=== PATIENT | male | born 1950 | race Caucasian/White ===

== ENCOUNTER 2019-03-14 05:31 | Inpatient (IN) ==
--- NOTE | 2019-02-22 16:15 | PAT Medication Instructions ---
Medication Instructions Date of Service February 22, 2019 Home Medications acetaminophen [Tylenol Extra Strength] 500 mg PO Q6H PRN cholecalciferol (vitamin D3) [Vitamin D3] 125 mcg PO QAM hydrochlorothiazide 25 mg PO QAM lisinopril 40 mg PO QPM omeprazole 20 mg PO QAM simvastatin 20 mg PO PM DO NOT take the morning of surgery cholecalciferol (vitamin D3) [Vitamin D3] 125 mcg PO QAM hydrochlorothiazide 25 mg PO QAM Take morning of surgery With a small sip of water, OTHERWISE NOTHING TO EAT OR DRINK AFTER MIDNIGHT: acetaminophen [Tylenol Extra Strength] 500 mg PO Q6H PRN (if needed, may be taken up to four hours before surgery) omeprazole 20 mg PO QAM Take evening before surgery acetaminophen [Tylenol Extra Strength] 500 mg PO Q6H PRN (if needed) lisinopril 40 mg PO QPM simvastatin 20 mg PO PM Other Notes If you have any questions please call us at [phone] or [phone] or [phone] or [phone]
--- NOTE | 2019-02-23 10:58 | Anesthesiology Consultation ---
Date of Service February 23, 2019 Assessment & Plan (1) Encounter for pre-operative examination: Chart Review Chart Review: Acceptable Risk for Surgery (PENDING PRE OP TESTING -- LABS, EKG, CXR) and Patient seen in Pre Admission Testing Teaching & Discussion Instructed NPO after midnight before surgery, except medications with 15 cc of water. Medication instructions provided according to the PAT guidelines. History Surgery Operation Date: 03/14/19 07:45 Proposed Procedures p L3-L5 Decompression and Fusion, L5-S1 Hardware Removal with Spinal Cord Monitoring - Monty Lopez, Height/Weight Height: 5 ft 9.5 in Weight: 74.843 kg Allergies Allergy/AdvReac Type Severity Reaction Status Date / Time No Known Allergies Allergy Unverified 02/17/19 15:30 Medications Home Medications Medication Instructions Recorded Confirmed Last Taken acetaminophen [Tylenol Extra 500 mg PO Q6H PRN 02/17/19 02/17/19 Unknown Strength] cholecalciferol (vitamin D3) 125 mcg PO QAM 02/17/19 02/17/19 Unknown [Vitamin D3] hydrochlorothiazide 25 mg PO QAM 02/17/19 02/17/19 Unknown lisinopril 40 mg PO QPM 02/17/19 02/17/19 Unknown omeprazole 20 mg PO QAM 02/17/19 02/17/19 Unknown simvastatin 20 mg PO PM 02/17/19 02/17/19 Unknown Past Medical History Medical History (Updated 02/23/19 @ 11:02 by Solomon Greene) BPH (benign prostatic hyperplasia) Chronic kidney disease, stage 3 Follows w/ Dr. Carmelo Larios Degenerative disc disease GERD (gastroesophageal reflux disease) Hyperlipidemia Hypertension Osteoarthritis Sleep apnea Just diagnosed, has not received CPAP machine yet. Exercise / Class Metabolic Activity II 4-5 Yardwork/Stairs/Walk up hill (Denies CP or SOB with 1 FOS) Past Surgical History Surgical History History of cataract surgery History of colonoscopy History of esophagogastroduodenoscopy (EGD) History of prostate biopsy History of spinal surgery x 2 History of tonsillectomy and adenoidectomy History of tooth extraction Past Anesthesia History No Hx of Anesthesia Complications and No Family Hx of Anesthesia Complications History of PONV No Hx of PONV and No Hx of Motion Sickness Social History Smoking Status: Never smoker Do You Dip or Chew Tobacco: No Hx Alcohol Use: Yes alcohol intake frequency: holidays/special occasions only Hx Substance Use: No substance use type: does not use Review of Systems Pt denies any recent chest pain, shortness of breath, palpitations, cough, fever or URI. Physical Exam Vital Signs BP: 118/76 P: 100bpm SPO2: 98% RA T: 98.8 F R: 18 ENMT Mouth: + dentures and + edentulous Thyromental Distance: > or= 3.5 Finger Breadths (4) Mallampati Class: II Neck normal visual inspection and + facial hair (thin short hannah); neck extension not limited Respiratory normal respiratory effort Auscultation: lungs clear to auscultation bilaterally Cardiovascular Rate/Rhythm: regular rhythm and + tachycardic Heart Sounds: no murmur Vessels: no carotid bruit
--- NOTE | 2019-02-23 11:50 | XRay Report ---
XR chest Pre-admission PA/Lat CLINICAL HISTORY: 68 years-old Male presenting with preoperative assessment. TECHNIQUE: PA and lateral views of the chest were obtained. COMPARISON: None. FINDINGS: Cardiomediastinal silhouette normal. Lungs are hyperinflated. No focal opacity. No pleural effusion o r pneumothorax. Degenerative changes of the thoracic spine. Upper abdomen normal. IMPRESSION: 1. Hyperinflation could suggest underlying emphysema or other obstructive lung disease. 2. No convincing evidence of acute cardiopulmonary disease. ACT 112: Negative or not required by law. Electronically signed by: Luther Massey M.D. 02/23/2019 11:49 AM
[2019-02-23 13:42] LABS: Basophils # (auto) 0.06 K/uL (0-0.2); Basophils % (auto) 0.7 %; Eosinophils # (auto) 0.18 K/uL (0-0.5); Hematocrit (blood only) 43.6 % (42-52); Hemoglobin 15.2 g/dL (14.0-18.0); Immature Granulocytes # (auto) 0.01 K/uL (0.00-0.02); Immature Granulocytes % (auto) 0.1 %; Lymphocytes # (auto) 2.53 K/uL (1.2-3.4); Lymphocytes % (auto) 28.5 %; Mean Corpuscular Hemoglobin 31.5 pg (25-34); Mean Corpuscular Hgb Conc 34.9 g/dL (32-36); Mean Corpuscular Volume 90.5 fL (80-100); Mean Platelet Volume 10.5 fL (7.4-10.4); Monocytes # (auto) 0.87 K/uL (0.11-0.59); Monocytes % (auto) 9.8 %; Neutrophils # (auto) 5.24 K/uL (1.4-6.5); Neutrophils % (auto) 58.9 %; Platelet Count 331 K/uL (130-400); RDW Coefficient of Variation 12.9 % (11.5-14.5); RDW Standard Deviation 42.5 fL (36.4-46.3); Red Blood Count 4.82 M/uL (4.7-6.1); White Blood Count 8.89 K/uL (4.8-10.8)
[2019-02-23 13:49] LABS: BUN Creatinine Ratio 12.1 (10-20); Calcium 10.1 mg/dl (8.5-10.1); Creatinine Clr Calc Pharmacy 48.2 ml/min; Est GFR (African American) 54.6; Est GFR (Non-African American) 47.1; Potassium 4.1 mmol/L (3.5-5.1)
[2019-02-23 13:54] LABS: Partial Thromboplastin Ratio 0.9; Partial Thromboplastin Time 24.5 Seconds (21.0-31.0); Prothrombin Time 10.1 Seconds (9.0-12.0)
[2019-02-23 14:08] LABS: Appearance Urine Clear (Clear); Bilirubin Urine Negative (Negative); Blood Urine Negative (Negative); Color Urine Yellow; Glucose Urine UA Negative (Negative); Ketones Urine Negative (Negative); Leukocyte Esterase Urine Negative (Negative); Nitrite Urine Negative (Negative); Protein Urine Negative (Negative); Specific Gravity Urine 1.006 (1.000-1.030); Urobilinogen Urine Negative (Negative); pH Urine 5.5 (4.5-7.5)
--- NOTE | 2019-02-24 06:03 | Electrocardiogram Report ---
Test Reason : Blood Pressure : / mmHG Vent. Rate : 089 BPM Atrial Rate : 089 BPM P-R Int : 132 ms QRS Dur : 110 ms QT Int : 362 ms P-R-T Axes : 060 -66 063 degrees QTc Int : 440 ms Normal sinus rhythm Left anterior fascicular block Abnormal ECG No previous ECGs available Confirmed by Ab Castillo ([id number]) on 02/24/2019 6:02:54 AM Referred By: Monty Lopez Confirmed By:Ab Castillo
[2019-03-14] MEDS ORDERED: CEFAZOLIN 1000MG 1,000 MG/7.5 ML SYR IV SCH (06:00)
[2019-03-14] MEDS ORDERED: CeleBREX 200 MG CAP PO SCH (06:00)
[2019-03-14] MEDS ORDERED: LR 15ML/HR IV SCH (06:00)
[2019-03-14] MEDS ORDERED: ACETAMINOPHEN 500 MG TAB PO SCH (06:00)
[2019-03-14] MEDS ORDERED: GABAPENTIN 300 MG CAP PO SCH (06:00)
[2019-03-14] MEDS ORDERED: LIDOCAINE HCL 2% 2 ML VIAL/AMP(20MG/ML) INFIL ONE (06:51)
[2019-03-14] MEDS ORDERED: MIDAZOLAM HCL 1 MG/ML 2ML VIAL ONE (06:51)
[2019-03-14] MEDS ORDERED: fentaNYL citrate 100 MCG/2 ML VIAL ONE (06:51)
[2019-03-14] MEDS ORDERED: ROCURONIUM BROMIDE 10 MG/ML 5 ML VIAL ONE (06:51)
[2019-03-14] MEDS ORDERED: PROPOFOL IV EMULSION 10 MG/ML 20 ML VIAL IV ONE (06:51)
[2019-03-14] MEDS ORDERED: ONDANSETRON INJ 2 MG/ML 2 ML VIAL ONE (06:51)
[2019-03-14] MEDS ORDERED: ATROPINE SULFATE 0.1 MG/ML 10ML SYR IV PRN (06:58)
[2019-03-14] MEDS ORDERED: ePHEDrine sulfate 50 MG/ML AMP IV PRN (06:58)
[2019-03-14] MEDS ORDERED: ONDANSETRON INJ 2 MG/ML 2 ML VIAL IV PRN (06:58)
[2019-03-14] MEDS ORDERED: BACITRACIN INJ 50,000 UNIT VIAL ONE (07:08)
[2019-03-14] MEDS ORDERED: BUPIVACAINE/EPINEPHRINE 0.25% 1:200,000 30 ML VIAL ONE (07:08)
--- NOTE | 2019-03-14 07:34 | History & Physical Bridge Note ---
Date of Service March 14, 2019 History & Physical Bridge Note I have examined the patient, reviewed the History & Physical and in the interval since the performance of the History & Physical I have noted the following changes of clinical significance: no changes noted
--- NOTE | 2019-03-14 07:35 | History & Physical Report ---
Date of Service March 14, 2019 Assessment & Plan (1) Neurogenic claudication due to lumbar spinal stenosis: L3-L5 decompression fusion, L5-S1 hardware removal Present on Admission?: Yes History of Present Illness Chief Complaint: Back and leg pain Primary Care Provider: Amador Telles, DO This is a 68-year-old male who presents with chronic persistent back and leg pain after failing course of nonoperative care is here for surgical invention. Allergies Allergy/AdvReac Type Severity Reaction Status Date / Time No Known Allergies Allergy Unverified 03/14/19 05:56 Home Medications Home Medications Medication Instructions Recorded Confirmed Type acetaminophen [Tylenol Extra 500 mg PO Q6H PRN 02/17/19 03/14/19 History Strength] cholecalciferol (vitamin D3) 125 mcg PO QAM 02/17/19 03/14/19 History [Vitamin D3] hydrochlorothiazide 25 mg PO QAM 02/17/19 03/14/19 History lisinopril 40 mg PO QPM 02/17/19 03/14/19 History omeprazole 20 mg PO QAM 02/17/19 03/14/19 History simvastatin 20 mg PO PM 02/17/19 03/14/19 History Past Med/Surg History Surgical History History of cataract surgery History of colonoscopy History of esophagogastroduodenoscopy (EGD) History of prostate biopsy History of spinal surgery x 2 History of tonsillectomy and adenoidectomy History of tooth extraction Social History Preferred Language: Grenadian Communication Ability: Effective Body Fitter Required: No Beliefs That Will Affect Care: None Current Living Situation: Spouse Other Information That Helps Us Care for You: No Feels Safe at Home: Yes Safety Concerns: Feels Safe At This Time Smoking Status: Never smoker Do You Dip or Chew Tobacco: No ; Second Hand Exposure: No ; Hx Alcohol Use: Yes Hx Substance Use: No Physical Exam Physical Exam: Patient is alert and oriented neurologically intact. Results & Data Vital Signs (Past 12 Hours) Vital Signs Temp Pulse Resp BP Pulse Ox 03/14/19 06:04 36.9 C 98 H 20 168/94 H 97
[2019-03-14] MEDS ORDERED: PHENYLEPHRINE 100MCG/ML 5ML SYR ONE (08:20)
--- NOTE | 2019-03-14 09:42 | Operative Report ---
Post Operative Report Pre & Post Diagnosis Operation Date: 03/14/19 07:45 Pre-Op Diagnosis: Lumbar spinal stenosis with radiculopathy Post-Op Diagnosis: Same I identified the patient and participated in the time-out.: Yes Procedure Operation Date: 03/14/19 07:45 Actual Procedures #1 revision decompression with bilateral medial facetectomies and foraminotomies L3-4 L4-5 #2 posterior spinal fusion L3-4 L4-5. #3 placement posterior instrumentation L3-4 L4-5 per #4 interbody fusion L4-5. #5 placement of peek cage 13 x 26 mm L4-5. #6 placement locally harvested morselized autograft in the posterior gutters. #7 placement infuse collagen sponge master graft in the posterior lateral gutters and osteopenia by space. #8 removal of posterior instrumentation L5-S1. #9 exploration of fusion L5-S1. Surgeon Monty Lopez, On Car Supervisor Lynn Hayden Estimated Blood Loss 100 Findings Consistent with Post-Op Diagnosis Specimens None Indications This is a 68-year-old male presents with above-mentioned diagnosis after failing extensive course of nonoperative care is here for surgical intervention. Description of Procedure Patient was met with identified informed consent obtained. Patient was then taken to the operative suite underwent an patient placed in a prone position the Rocky table on top of the Kash frame. All bony prominences well-padded eyes inspected to ensure no external pressure placed upon the peer at this point the lumbar spine was prepped and draped in a sterile fashion. Sharp dissection with the assistance of Bovie cautery was performed down to and exposing the lamina transverse processes of L3-L4 and instrumentation at L5 and S1 levels bilat erally. Then proceeded move the hardware bilaterally at L5-S1 explore the fusion mass noting it to be intact. I then performed a revision complete laminectomy of L4 and L3 including bilateral medial facetectomies foraminotomies addressing severe stenosis particular in the neuroforamen L4-5 on the left. After this complete pedicle screws were placed in L3-L4-L5 bilaterally with assistance of fluoroscopy the purposes karli placed. By way of a transforaminal portion left complete discectomy was performed endplates coated to subcortical bleeding bone and a 13 x 26 mm peek cage filled with osteo-bone graft tapped in position. The rods were then locked in final position bilaterally. The transverse processes of L3-L4-L5 bur to subcortical bleeding bone. Infuse collagen sponge master graft local autograft placed in the posterior lateral gutters. 15 round SHOSHANA drain inserted. The incision was then closed with 1 Vicryl in the fascia 2-0 Vicryl subcutaneously and 4 Monocryl for final skin cl osure. Steri-Strips dressings placed. Patient will continue PACU stable addition. Please note spinal cord monitoring was utilized that the procedure no changes noted. Lastly Lynn Hayden was present at the entire procedure involved the patient positioning complex portions of the surgery and final skin closure. I attest to the content of the Intraoperative Record and any orders documented therein. Any exceptions are noted below.
[2019-03-14] MEDS ORDERED: FLOSEAL HEMOSTATIC MATRIX 10ML TOP ONE (09:44)
--- NOTE | 2019-03-14 09:59 | Fluoroscopy Report ---
FL lumbar spine 2-3V HISTORY: 68 years-old Male L3-L5 DECOMP/FUSION, L5-S1 HARDWARE REMOVAL chronic low back pain COMPARISON: Lumbar spine radiographs 11/24/2012 TECHNIQUE: 2 spot fluoroscopic images of the lumbar spine were obtained utilizing 11.0 seconds fluoro scopy time FINDINGS: Posterior interbody karli and screw fusion is noted at L3-L5. Discectomy changes at L4-L5 and L5-S1. Al ignment appears satisfactory. Multilevel spondylitic spurring. Moderate disc space narrowing at L2-L3 . IMPRESSION: Fluoroscopic assistance as above. Please see operative report for further details. ACT 112: Negative or not required by law. The above report was generated using voice recognition software. It may contain grammatical, syntax o r spelling errors. Electronically signed by: Javi Yeager M.D. 03/14/2019 9:58 AM
[2019-03-14] MEDS: fentaNYL citrate 100 MCG/2 ML VIAL IV PRN ×2 (10:21→10:26)
[2019-03-14] MEDS: HYDROmorphone INJ 2 MG/ML SYR/VIAL IV PRN ×3 (10:31→11:35)
[2019-03-14] MEDS ORDERED: ALBUMIN HUMAN 5% 12.5 GM/250 ML VIAL IV ONE (11:08)
[2019-03-14] MEDS ORDERED: ALBUMIN 5% 250 ML IV SCH (11:30)
--- NOTE | 2019-03-14 12:00 | Anesthesiology Progress Note ---
Date of Service March 14, 2019 Anesthesia Post Procedure Vital Signs Vital Signs: Temp Pulse Pulse Resp BP Pulse Ox 03/14/19 11:50 90 14 94/62 L 100 03/14/19 11:40 82 14 85/51 L 100 03/14/19 11:30 84 16 91/54 L 99 03/14/19 11:20 93 H 12 93/56 L 99 03/14/19 11:10 90 18 90/55 L 100 03/14/19 11:00 78 18 94/66 L 99 03/14/19 10:50 88 18 102/62 99 03/14/19 10:40 83 16 96/63 L 97 03/14/19 10:30 75 16 99/71 L 97 03/14/19 10:20 92 H 17 106/69 96 03/14/19 10:10 100 H 18 109/70 98 03/14/19 10:01 36.1 C L 99 H 11 L 91/55 L 98 03/14/19 06:04 36.9 C 98 H 20 168/94 H 97 Pain Intensity Lower Back: Pain Intensity: 6 Transfer of Care Handoff Completed per policy Notes Mental Status: alert / awake / arousable and participated in evaluation Patient Amnestic to Procedure: Yes Nausea / Vomiting: adequately controlled Pain: adequately controlled Airway Patency, RR, SpO2: stable & adequate BP & HR: stable & adequate Hydration State: stable & adequate Anesthetic Complications: no major complications apparent and Pt Satisfied with anesthetic care Notes: blood pressure in the 90's and patient still in significant pain so decided to give dose of albumin to better stabilize blood pressure and then treat his pain with long acting pain medication. after this was done, bp maintain in 90's and pain tolerable per patient. appears ok for transfer to the floor.
[2019-03-14] MEDS ORDERED: MAGNESIUM HYDROXIDE SUSP 30 ML UDC PO PRN (12:37)
[2019-03-14] MEDS ORDERED: ALUMINUM/MAGNESIUM SUSP 30 ML UDC PO PRN (12:37)
[2019-03-14] MEDS ORDERED: DO NOT ADMINISTER FLU VACCINE PRN (12:37)
[2019-03-14] MEDS ORDERED: HYDROmorphone INJ 1 MG/ML SYRINGE IV PRN (12:37)
[2019-03-14] MEDS ORDERED: HYDROmorphone INJ 0.5 MG/0.5 ML SYR IV PRN (12:37)
[2019-03-14] MEDS ORDERED: FAMOTIDINE 20 MG TAB PO PRN (12:37)
[2019-03-14] MEDS ORDERED: METOCLOPRAMIDE HCL INJ 5 MG/ML 2 ML VIAL IV PRN (12:37)
[2019-03-14] MEDS ORDERED: bisacodyL 10 MG SUPP PR PRN (12:37)
[2019-03-14] MEDS ORDERED: LORazepam 0.5 MG/1 ML VIAL IV PRN (12:37)
[2019-03-14] MEDS ORDERED: NALOXONE HCL 0.4 MG/1 ML VIAL/CARP IV PRN (12:37)
[2019-03-14] MEDS ORDERED: ACETAMINOPHEN 500 MG TAB PO PRN ×2 (12:37)
[2019-03-14] MEDS ORDERED: SOD PHOSPHATE/SOD BIPHOSPHATE ENEMA 132 ML BTL PR PRN (12:37)
[2019-03-14] MEDS ORDERED: ONDANSETRON 4 MG OD TAB PO PRN (12:37)
[2019-03-14] MEDS ORDERED: PROMETHAZINE HCL 12.5 MG in SODIUM CHLORIDE 0.9% 50 ML IV PRN (12:37)
[2019-03-14] MEDS ORDERED: LORazepam 0.5 MG TAB PO PRN (12:37)
[2019-03-14] MEDS ORDERED: DO NOT ADMINISTER PNEUMOCOCCAL VACCINE PRN (12:37)
[2019-03-14] MEDS ORDERED: ACETAMINOPHEN 1,000 MG/100 ML VIAL IV PRN (12:37)
--- NOTE | 2019-03-14 13:14 | Consultation ---
Date of Consultation March 14, 2019 Assessment & Plan (1) Status post lumbar surgery: Post op day# 0 S/P L3-L5 decompression and fusion by Dr Lopez EBL#100ml -pain management per ortho -wound management per ortho -PT/OT as appropriate -DVT prophylaxis per ortho -incentive spirometry -monitor H&H for acute blood loss anemia; pre-op Hgb: 15 (2) Hypertension: BPs on low side: 103/65 -Hold lisinopril, HCTZ and reassess tomorrow (3) Hyperlipidemia: -Continue simvastatin (4) Chronic kidney disease, stage 3: Pre-op Cr: 1.5 -Monitor renal functions -Avoid nephrotoxic agents when possible, including NSAIDs (5) GERD (gastroesophageal reflux disease): -Continue PPI (6) Sleep apnea: -CPAP HS DVT Prophylaxis -SCDs Disposition per primary team Full Code as per discussion with pt Follows with Dr Amador Telles at [facility] for routine care Pt was seen and care coordinated with Dr West. See addendum Pt will be followed by Dr Crabtree starting 03/15/2019 Thank you for this consultation. We will follow the patient with you during their hospital stay. You can reach a member of the [facility] Hospitalist Team 07/09 via pager @ [phone]. Supervising Physician Co-Signing Physician Notes 68-year-old man with history of 68-year-old man 68-year-old man with history of hypertension, hyperlipidemia, GERD, BPH, CKD 3, TALIB, lumbar spinal stenosis with radiculopathy status post decompression and fusion today by Dr. Lopez. Patient seen postop on consult for management of medical problems. History and physical exam performed by me. Detailed history as documented by Sonya Palacio PA-C. History notable for radiculopathy especially in the left leg with leg pains and occasional numbness. Physical exam notable for clean dressing right lower back with drain in situ containing sanguinous fluid, hypoactive bowel sounds. Pain management per primary surgical team. PT/OT Incentive spirometry. Wean off oxygen as tolerated Check postop hemoglobin BP has been running on the lower end (100s/60s). Hold antihypertensives for now and monitor. Continue CPAP at bedtime History of Present Illness Reason for Consultation: Post op medical management Attending Physician: Monty Lopez, DO History of Present Illness Pt is 68 y/o M with PMH HTN, HLD, GERD, BPH, CKD III, Sleep apnea seen in medical consultation s/p L3-L5 decompression and fusion today by Dr Lopez. Post-op pt reports low back pain. Reports had left leg pain prior to surgery however since surgery prior leg pain has resolved. No flatus yet since surgery. Denies fever/chills, diaphoresis, N/V, RUFFIN, dizziness, syncope, vision changes, neck pain, CP, SOB, orthopnea, palpitations, cough, sore throat, choking, otalgia, rhinorrhea, abdominal pain, paresthesias, extremity edema, rashes, urinary symptoms. Allergies Allergy/AdvReac Type Severity Reaction Status Date / Time No Known Allergies Allergy Unverified 03/14/19 05:56 Home Medications Home Medications Medication Instructions Recorded Confirmed Type acetaminophen [Tylenol Extra 500 mg PO Q6H PRN 02/17/19 03/14/19 History Strength] cholecalciferol (vitamin D3) 125 mcg PO QAM 02/17/19 03/14/19 History [Vitamin D3] hydrochlorothiazide 25 mg PO QAM 02/17/19 03/14/19 History lisinopril 40 mg PO QPM 02/17/19 03/14/19 History omeprazole 20 mg PO QAM 02/17/19 03/14/19 History simvastatin 20 mg PO PM 02/17/19 03/14/19 History Patient History Medical History BPH (benign prostatic hyperplasia) Chronic kidney disease, stage 3 Follows w/ Dr. Carmelo Larios Degenerative disc disease GERD (gastroesophageal reflux disease) Hyperlipidemia Hypertension Osteoarthritis Sleep apnea Just diagnosed, has not received CPAP machine yet. Surgical History History of cataract surgery History of colonoscopy History of esophagogastroduodenoscopy (EGD) History of prostate biopsy History of spinal surgery x 2 History of tonsillectomy and adenoidectomy History of tooth extraction Family History Other No family history of adverse response to anesthesia Social History Preferred Language: Kazakh Communication Ability: Effective Adult Basic Education Instructor Required: No Beliefs That Will Affect Care: None Current Living Situation: Spouse Other Information That Helps Us Care for You: No Feels Safe at Home: Yes Safety Concerns: Feels Safe At This Time Smoking Status: Never smoker Do You Dip or Chew Tobacco: No ; Second Hand Exposure: No ; Hx Alcohol Use: Yes Hx Substance Use: No Review of Systems Review of Systems: All systems reviewed & are unremarkable except as noted in HPI & below Physical Exam Physical Exam: General: no acute distress, WDWN Head: normocephalic, atraumatic Eyes: PERRL, EOM's intact, conjunctiva non-injected, anicteric ENT: normal inspection external ears, nose, mucous membranes moist Neck: supple, trachea midline Lungs: clear, no respiratory distress, no wheezing/rhonchi/rales CV: RRR, no murmur, no pretibial edema Abd: hypoactive BS, soft, non-tender Ext: no cyanosis, no calf tenderness; pedal pushes and pulls intact, distal pulses intact Neuro: A&O x 3, no focal deficits noted, normal affect Skin: warm, dry Results & Data Vital Signs (Past 12 Hours) Vital Signs Temp Pulse Pulse Resp BP Pulse Ox 03/14/19 12:10 90 14 94/52 L 99 03/14/19 12:00 36.3 C L 93 H 12 93/55 L 97 03/14/19 11:50 90 14 94/62 L 100 03/14/19 11:40 82 14 85/51 L 100 03/14/19 11:30 84 16 91/54 L 99 03/14/19 11:20 93 H 12 93/56 L 99 03/14/19 11:10 90 18 90/55 L 100 03/14/19 11:00 78 18 94/66 L 99 03/14/19 10:50 88 18 102/62 99 03/14/19 10:40 83 16 96/63 L 97 03/14/19 10:30 75 16 99/71 L 97 03/14/19 10:20 92 H 17 106/69 96 03/14/19 10:10 100 H 18 109/70 98 03/14/19 10:01 36.1 C L 99 H 11 L 91/55 L 98 03/14/19 06:04 36.9 C 98 H 20 168/94 H 97
[2019-03-14] MEDS: ONDANSETRON INJ 2 MG/ML 2 ML VIAL IV PRN (16:59)
[2019-03-14] MEDS: CEFAZOLIN 2000MG 2,000 MG/15 ML SYR IV SCH ×2 (17:32→23:28)
[2019-03-14] MEDS ORDERED: KETOROLAC TROMETHAMINE 15 MG/ML VIAL IV SCH (18:00)
[2019-03-14] MEDS: TRAMADOL HCL 50 MG TABLET PO PRN (19:11)
[2019-03-14] MEDS: SIMVASTATIN 20 MG TAB PO SCH (20:41)
[2019-03-14] MEDS: DOCUSATE SODIUM/SENNA 50/8.6MG TAB PO SCH (20:41)
[2019-03-14] MEDS ORDERED: lisinopriL 40 MG TAB PO SCH (21:00)
[2019-03-14] MEDS: OXYCODONE HCL IR 5 MG TAB (IMMEDIATE RELEASE) PO PRN (23:27)
[2019-03-14] MEDS: LACTATED RINGER'S 1,000 ML IV SCH ×2 (23:28→23:50)
[2019-03-15] MEDS: POLYETHYLENE (MIRALAX) 17 GM PACK PO SCH ×4 (05:46→23:56)
[2019-03-15 06:19] LABS: Basophils # (auto) 0.02 K/uL (0-0.2); Basophils % (auto) 0.2 %; Eosinophils # (auto) 0.05 K/uL (0-0.5); Eosinophils % (auto) 0.4 %; Hematocrit (blood only) 32.4 % (42-52); Immature Granulocytes # (auto) 0.02 K/uL (0.00-0.02); Immature Granulocytes % (auto) 0.2 %; Lymphocytes # (auto) 2.69 K/uL (1.2-3.4); Lymphocytes % (auto) 21.9 %; Mean Corpuscular Hemoglobin 31.5 pg (25-34); Mean Corpuscular Volume 92.8 fL (80-100); Mean Platelet Volume 9.9 fL (7.4-10.4); Monocytes # (auto) 1.21 K/uL (0.11-0.59); Monocytes % (auto) 9.8 %; Neutrophils # (auto) 8.31 K/uL (1.4-6.5); Neutrophils % (auto) 67.5 %; Platelet Count 227 K/uL (130-400); RDW Standard Deviation 43.8 fL (36.4-46.3); Red Blood Count 3.49 M/uL (4.7-6.1)
[2019-03-15 06:41] LABS: Calcium 8.6 mg/dl (8.5-10.1); Creatinine Clr Calc Pharmacy 48.9 ml/min; Est GFR (African American) 55.5; Est GFR (Non-African American) 47.9
[2019-03-15] MEDS: PANTOprazole 40 MG TAB PO SCH (08:26)
[2019-03-15] MEDS: TRAMADOL HCL 50 MG TABLET PO PRN ×3 (08:26→21:28)
[2019-03-15] MEDS: CHOLECALCIFEROL 1,000 UNITS 25 MCG TAB PO SCH (08:45)
[2019-03-15] MEDS ORDERED: hydroCHLOROthiazide 25 MG TAB PO SCH (09:00)
--- NOTE | 2019-03-15 09:29 | History & Physical Report ---
Date of Service March 15, 2019 History of Present Illness Primary Care Provider: Amador Telles DO Allergies Allergy/AdvReac Type Severity Reaction Status Date / Time No Known Allergies Allergy Unverified 03/14/19 05:56 Home Medications Home Medications Medication Instructions Recorded Confirmed Type acetaminophen [Tylenol Extra 500 mg PO Q6H PRN 02/17/19 03/14/19 History Strength] cholecalciferol (vitamin D3) 125 mcg PO QAM 02/17/19 03/14/19 History [Vitamin D3] hydrochlorothiazide 25 mg PO QAM 02/17/19 03/14/19 History lisinopril 40 mg PO QPM 02/17/19 03/14/19 History omeprazole 20 mg PO QAM 02/17/19 03/14/19 History simvastatin 20 mg PO PM 02/17/19 03/14/19 History Past Med/Surg History Medical History BPH (benign prostatic hyperplasia) Chronic kidney disease, stage 3 Follows w/ Dr. Carmelo Larios Degenerative disc disease GERD (gastroesophageal reflux disease) Hyperlipidemia Hypertension Osteoarthritis Sleep apnea Just diagnosed, has not received CPAP machine yet. Surgical History History of cataract surgery History of colonoscopy History of esophagogastroduodenoscopy (EGD) History of prostate biopsy History of spinal surgery x 2 History of tonsillectomy and adenoidectomy History of tooth extraction Family History Other No family history of adverse response to anesthesia Social History Preferred Language: Upper Sorbian Communication Ability: Effective Evs Manager Required: No Beliefs That Will Affect Care: None Current Living Situation: Spouse Other Information That Helps Us Care for You: No Feels Safe at Home: Yes Safety Concerns: Feels Safe At This Time Smoking Status: Never smoker Do You Dip or Chew Tobacco: No ; Second Hand Exposure: No ; Hx Alcohol Use: Yes Hx Substance Use: No Results & Data Vital Signs (Past 12 Hours) Vital Signs Temp Pulse Pulse Pulse Resp BP Pulse Ox 03/15/19 07:37 36.8 C 80 16 114/70 95 03/15/19 02:50 36.7 C 87 16 121/79 93 03/15/19 02:19 102 H 16 94 03/14/19 23:37 36.5 C 86 16 117/79 100 03/14/19 22:15 92 H 16 94 Code Status & VTE Plan VTE Prophylaxis Plan VTE Prophylaxis will be ordered: Yes
--- NOTE | 2019-03-15 13:19 | Orthopedic Progress Note ---
Date of Service March 15, 2019 Assessment & Plan (1) Neurogenic claudication due to lumbar spinal stenosis: At this time we will continue physical therapy monitor his SHOSHANA output hopefully discharge home in the next few days. Present on Admission?: Yes Subjective Patient's back pain is controlled leg symptoms markedly improved. Physical Exam Physical Exam: Patient is in the chair at the bedside. Is good strength testing. Peers comfortable. Results & Data ([facility]) Vital Signs (Past 12 Hours) Vital Signs Temp Pulse Pulse Pulse Resp BP Pulse Ox 03/15/19 11:22 36.9 C 93 H 16 99/61 L 94 03/15/19 07:37 36.8 C 80 16 114/70 95 03/15/19 02:50 36.7 C 87 16 121/79 93 03/15/19 02:19 102 H 16 94
--- NOTE | 2019-03-15 19:54 | Hospitalist Progress Note ---
Date of Service March 15, 2019 Assessment & Plan (1) Status post lumbar surgery: Post op day#1 S/P L3-L5 decompression and fusion by Dr Lopez -No post op complication -pain management per ortho -PT/OT as appropriate -DVT prophylaxis per ortho -incentive spirometry -Hgb 11 today -Monitor H/H (2) Hypertension: -BPs on low side: 103/65 -Continue to hold lisinopril, HCTZ for now (3) Hyperlipidemia: -Continue simvastatin (4) Chronic kidney disease, stage 3: Pre-op Cr: 1.5, creatinine 1.4 today -Monitor renal functions -Avoid nephrotoxic agents when possible, including NSAIDs (5) GERD (gastroesophageal reflux disease): -Continue PPI (6) Sleep apnea: -CPAP HS CODE STATUS FULL CODE Thank you for this consultation. We will follow the patient with you during their hospital stay. You [facility] via pager @ [phone]. Subjective Pt was seen and examined Lying in bed with at bedside Pt said that he feels ok He said that pain controlled He said that he has been walking in the hallway Denies any chest pain, palpitation, dizziness and SOB Physical Exam Physical Exam: General- No acute distress Head- atraumatic Eyes- PERRL, EOMI, ENT- oropharynx clear Neck- supple, no JVD Lungs- clear to auscultation Heart- regular rhythm; no murmur Abdomen- normal bowel sounds, soft, nontender Extremities- no calf tenderness Neuro- alert, oriented x 3; PERRL, EOMI; no facial palsy; no dysarthria Skin- warm & dry Results & Data Vital Signs (Past 12 Hours) Vital Signs Temp Pulse Resp BP BP Pulse Ox 03/15/19 15:13 37.4 C 88 16 118/75 94 03/15/19 11:22 36.9 C 93 H 16 99/61 L 94
[2019-03-15] MEDS ORDERED: ACETAMINOPHEN W/CODEINE #3 1 TAB PO PRN (20:06)
[2019-03-15] MEDS: SIMVASTATIN 20 MG TAB PO SCH (21:28)
[2019-03-15] MEDS: DOCUSATE SODIUM/SENNA 50/8.6MG TAB PO SCH (21:28)
[2019-03-16] MEDS: POLYETHYLENE (MIRALAX) 17 GM PACK PO SCH ×2 (05:32→11:55)
[2019-03-16 06:28] LABS: Hematocrit (blood only) 34.4 % (42-52); Hemoglobin 11.6 g/dL (14.0-18.0); Mean Corpuscular Hemoglobin 31.3 pg (25-34); Mean Corpuscular Hgb Conc 33.7 g/dL (32-36); Mean Corpuscular Volume 92.7 fL (80-100); Mean Platelet Volume 10.2 fL (7.4-10.4); Platelet Count 238 K/uL (130-400); RDW Coefficient of Variation 12.9 % (11.5-14.5); RDW Standard Deviation 43.5 fL (36.4-46.3); Red Blood Count 3.71 M/uL (4.7-6.1); White Blood Count 10.27 K/uL (4.8-10.8)
[2019-03-16] MEDS: TRAMADOL HCL 50 MG TABLET PO PRN ×2 (07:36→20:32)
--- NOTE | 2019-03-16 08:45 | Orthopedic Progress Note ---
Date of Service March 16, 2019 Assessment & Plan (1) Neurogenic claudication due to lumbar spinal stenosis: Continue physical therapy today hopefully discharge home tomorrow Present on Admission?: Yes Subjective Back pain controlled leg symptoms improved Physical Exam Physical Exam: Patient is good strength testing appears comfortable. Results & Data ([facility]) Vital Signs (Past 12 Hours) Vital Signs Temp Pulse Pulse Resp BP Pulse Ox 03/16/19 07:32 36.8 C 103 H 16 110/70 98 03/15/19 23:16 37.1 C 78 16 120/70 93
[2019-03-16] MEDS: CHOLECALCIFEROL 1,000 UNITS 25 MCG TAB PO SCH (09:03)
[2019-03-16] MEDS: PANTOprazole 40 MG TAB PO SCH (09:03)
[2019-03-16] MEDS ORDERED: Nursing to Pharmacy Communication ONE (13:53)
--- NOTE | 2019-03-16 19:02 | Hospitalist Progress Note ---
Date of Service March 16, 2019 Assessment & Plan (1) Status post lumbar surgery: Post op day#2 S/P L3-L5 decompression and fusion by Dr Lopez -No post op complication -pain management per ortho -PT/OT as appropriate -DVT prophylaxis per ortho -incentive spirometry -Hgb 11.6 today (2) Hypertension: -BPs on low side: 103/65 -Continue to hold lisinopril, HCTZ for now (3) Hyperlipidemia: -Continue simvastatin (4) Chronic kidney disease, stage 3: Pre-op Cr: 1.5, creatinine 1.4 on 03/15/19 -Monitor renal functions -Avoid nephrotoxic agents when possible, including NSAIDs (5) GERD (gastroesophageal reflux disease): -Continue PPI (6) Sleep apnea: -CPAP HS Acute blood loss anemia Hgb pre-op 15, than dropped to 11 post op Hgb 11.6 today stable CODE STATUS FULL CODE Thank you for this consultation. We will follow the patient with you during their hospital stay. You can reach a member of the [facility] Hospitalist Team 07/09 via pager @ [phone]. Subjective Pt was seen and examined Sitting in chair with no distress Pt said that he feels much better He said that the pain is control He said that he has been working in the hallway Denies any chest pain, palpitation, dizziness and SOB Physical Exam Physical Exam: General- No acute distress Head- atraumatic Eyes- PERRL, EOMI, ENT- oropharynx clear Neck- supple, no JVD Lungs- clear to auscultation Heart- regular rhythm; no murmur Abdomen- normal bowel sounds, soft, nontender Extremities- no calf tenderness Neuro- alert, oriented x 3; PERRL, EOMI; no facial palsy; no dysarthria Skin- warm & dry Results & Data ([facility]) Vital Signs (Past 12 Hours) Vital Signs Temp Pulse Resp BP Pulse Ox 03/16/19 15:32 37 C 101 H 16 106/63 94 03/16/19 07:32 36.8 C 103 H 16 110/70 98
[2019-03-16] MEDS: DOCUSATE SODIUM/SENNA 50/8.6MG TAB PO SCH (20:29)
[2019-03-16] MEDS: SIMVASTATIN 20 MG TAB PO SCH (20:32)
[2019-03-17] MEDS: TRAMADOL HCL 50 MG TABLET PO PRN (03:46)
[2019-03-17] MEDS: ONDANSETRON INJ 2 MG/ML 2 ML VIAL IV PRN (03:46)
[2019-03-17] MEDS: PANTOprazole 40 MG TAB PO SCH (08:42)
[2019-03-17] MEDS: CHOLECALCIFEROL 1,000 UNITS 25 MCG TAB PO SCH (08:42)
--- NOTE | 2019-03-17 09:23 | Hospitalist Progress Note ---
Date of Service March 17, 2019 Assessment & Plan (1) Status post lumbar surgery: Post op day#3 S/P L3-L5 decompression and fusion by Dr Lopez -No post op complication -Pain management per ortho -PT/OT as appropriate -DVT prophylaxis per ortho -Incentive spirometry -Monitor H/H (2) Hypertension: Normotensive BP at 119/67 but has been on lower side during admission -Plan to resume lisinopril upon discharge home -Continue to HOLD HCTZ until follow up with PCP early next week for BP check -Discussed this plan with patient and updated discharge instructions (3) Hyperlipidemia: -Continue simvastatin (4) Chronic kidney disease, stage 3: Pre-op Cr: 1.5 -Monitor renal functions -Avoid nephrotoxic agents when possible, including NSAIDs (5) GERD (gastroesophageal reflux disease): -Continue PPI (6) Sleep apnea: -CPAP HS CODE STATUS FULL CODE Patient seen in collaboration with Dr. Crabtree. Please see addendum. Thank you for this consultation. We will follow the patient with you during their hospital stay. [facility] via pager @ [phone]. Subjective Seen and examined in 320-1. Patient ambulating with walker without issue. Endorses minimal surgical site pain, no pain or numbness to lower extremities. Denies fever, chills, chest pain, SOB, nausea, vomiting or diarrhea. Review of Systems Review of Systems: At least ten systems reviewed and negative except as noted in the HPI. Physical Exam Physical Exam: General- No acute distress Head- atraumatic Eyes- PERRL, EOMI, ENT- oropharynx clear Neck- supple, no JVD Lungs- clear to auscultation Heart- regular rhythm; no murmur Abdomen- normal bowel sounds, soft, nontender Extremities- no calf tenderness. Surgical dressing visualized, SHOSHANA drain Neuro- alert, oriented x 3; PERRL, EOMI; no facial palsy; no dysarthria Skin- warm & dry Results & Data ([facility]) Vital Signs (Past 12 Hours) Vital Signs Temp Pulse Pulse Resp BP Pulse Ox 03/17/19 07:29 37.1 C 87 16 119/67 93 03/17/19 03:15 64 16 93 03/16/19 23:35 36.8 C 93 H 16 112/63 96 03/16/19 22:54 58 L 14 96 03/16/19 22:34 16 94
[2019-03-17] MEDS: OXYCODONE HCL IR 5 MG TAB (IMMEDIATE RELEASE) PO PRN (10:00)
--- NOTE | 2019-03-17 13:39 | Discharge Summary ---
Date of Service March 17, 2019 Principal Diagnosis Lumbar spinal stenosis with neurogenic claudication Discharge Data Allergies Allergy/AdvReac Type Severity Reaction Status Date / Time No Known Allergies Allergy Unverified 03/14/19 05:56 Consultations 03/14/19 12:37 Consult Case Management - Discharge Planning Routine Consult Hospitalist Routine Procedures Performed Operation Date: 03/14/19 07:45 Actual Procedures p L3-L5 Decompression And Fusion, use of osteoamp, use of Infuse, Spinal Cord Monitoring(Not Applicable) - Monty Lopez DO s L5-S1 Hardware Removal,(Not Applicable) - Monty Lopez DO Ordered Studies 03/14/19 07:45 FL fluoroscopy <1hr Routine FL lumbar spine 2-3V Routine Hospital Course (1) Neurogenic claudication due to lumbar spinal stenosis: Patient underwent lumbar decompression fusion tolerated well into the orthopedic floor postoperatively. Postop day 1 he was up and ambulating leg p ain improved progressed to postop day #2. Postop day 3 SHOSHANA drain had decreased appropriately. Pain well controlled. SHOSHANA drain decreased probably. Excellent strength testing. Subsequently discharged home. Discharge orders instructions from the chart for further review. Total Time Total Time Spent Total Time Spent (In Minutes): 20 minutes Discharge Plan Discharge Items Patient Disposition: Home - Self-Care Reason For Visit: LUMBOSACRAL REGION INTERVERTEBRAL DISC DEGENERATIO Discharge Diagnosis: Lumbar spinal stenosis with neurogenic claudication Activity: As commented below Non-emergency contact: Primary Care Provider Call non-emergency contact if: you have any medication questions Follow-up/Referrals: Amador Telles DO [Primary Care Provider] - Diet: Regular Addtl Attending Provider Instructions: ACTIVITY RECOMMENDATIONS: SELF CARE INSTRUCTIONS AFTER THORACIC/LUMBAR FUSIONS 1. You may walk to your tolerance. It is good exercise for your legs and back. Expect some back and intermittent leg aches and pains. 2. You may perform "counter-top" level activities (make a sandwich, jose g with a project, etc.). 3. No bending or lifting of more than 10 pounds or back twisting of any nature (roll like a log when turning in bed). 4. You may ride in a car for 20-30 minutes at a time. No driving until after your first visit with your doctor. 5. Frequent changes of position and restricting sitting to 30 minutes at a time will help limit the amount of back spasms and stiffness you may experience. 6. You may discontinue the use of ambulatory aids (cane, crutches, etc.) once your strength and confidence allow. 7. You may superintendent maintenance the shower and let water strike your incision when you arri ve home at least once daily. Do not take a tub bath, sit in a hot tub or go into a swimming pool until after your first recheck in the office. SPECIAL CARE INSTRUCTIONS: VERY IMPORTANT TO READ AND REVIEW A. Your surgical incision has been closed with a cosmetic suture under the skin that will dissolve in about 6 weeks. In 14 days, you can use a pair of clean scissors and cut the suture that is left outside of the skin at the ends of your incision. 1. The small skin tapes can be removed 7 days after surgery if they have not fallen off by that point. 2. You may keep the wound open to air as much as possible to promote healing after post-op day number 5 unless told otherwise by your doctor. 3. If you think the wound looks like it is becoming infected (redness or worsening drainage) and/or you are experiencing fever, chill or worsening back pain and muscle spasms, contact the office so that we may evaluate you as soon as possible. B. Complications are uncommon, but please contact us if you have any signs or symptoms of: 1. wound infection (fever higher than 102.5 degrees F, redness, separation of wound, drainage, or increasing pain from the incision) 2. blood clots in legs (pain, swelling, redness and warmth in legs) 3. urinary tract infection (fever higher than 102.5 degrees F, burning upon urination or increased frequency of urination) 4. nerve problems (inability to walk on your toes or heels, numbness, loss of bowel or bladder control) 5. any other symptoms that concern you C. Please call the office at if you have any concerns or questions about your operation or recovery. D. No smoking! Smoking drastically decreases the chance of a solid fusion. E. Do not take any anti-inflammatory medications (Indocin, Advil, Motrin, Aspirin, Naprosyn, etc.) as these may inhibit the chance of a solid fusion. Tylenol is okay to take for pain. MANAGING PAIN AFTER SPINAL SURGERY 1. Narcotic medication is intended for short-term use and will be provided for surgical pain. Surgical pain usually lasts for a period of 4-6 weeks. Narcotic medication includes Percocet, Vicodin, Darvocet, Tylenol #3 or Lortab. 2. Longer-term pain is more appropriately treated with non-narcotic medication such as Tylenol ES. 3. Muscle spasm is not appropriately treated with narcotics. Muscle relaxers such as Soma, Flexeril or Skelaxin can be used along with Tylenol ES. 4. Remember that we all live with some "aches and pains". This is not unusual or uncommon after an injury or as we get older. a. Back pain is expected and may include muscle spasms for 4 to 6 weeks after surgery. The pain should gradually improve. If the pain worsens for no apparent reason, please contact the office. b. Intermittent leg pain may also be experienced and should not be concerned about unless it worsens for no apparent reason. If so, please contact the office. 5. We will provide appropriate medication within the normal guidelines of their prescribed use. We will also be very cautious and aware of potential abuse and extended duration of patients' medication needs. a. Pain medications are for your comfort and to assist with sleep and rest so that the tissue can heal. They are not provided in order to return to normal activity and should not be used through the day. To do so or worsening pain at night can result from ongoing tissue damage and development of tolerance to the prescribed medicine. 6. Please allow 2-3 days to process refills. Prescriptions will not be mailed but must be picked up at the office. FOLLOW UP VISIT: Keep your scheduled follow-up appointment. Any questions, please call the office at . 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 Okay to resume lisinopril upon discharge. Pending Studies at Discharge: No Stand-Alone Forms: My NPC III, Smoking Cessation Medications and DC Order Prescriptions: New tramadol 50 mg tablet 50 mg PO Q6H PRN (Reason: pain, moderate) Qty: 30 RF: 0 oxycodone 5 mg tablet 5 mg PO Q6H PRN (Reason: pain, severe) Qty: 30 RF: 0 Continued acetaminophen [Tylenol Extra Strength] 500 mg Tablet 500 mg PO Q6H PRN (Reason: Pain) RF: 0 simvastatin 20 mg Tablet 20 mg PO PM RF: 0 hydrochlorothiazide 25 mg Tablet 25 mg PO QAM RF: 0 lisinopril 40 mg Tablet 40 mg PO QPM RF: 0 omeprazole 20 mg Tablet,Delayed Release (Dr/Ec) 20 mg PO QAM RF: 0 cholecalciferol (vitamin D3) [Vitamin D3] 125 mcg (5,000 unit) Tablet 125 mcg PO QAM RF: 0 Discharge Orders: Discharge Order (Routine); Ordered 03/17/19 Ordered By: Monty Lopez Admission Data Admit Date/Time: 03/14/19 10:38 Attending Provider: Monty Lopez Admit Provider: Monty Lopez Primary Care Provider: Amador Telles Other Providers: Dariel Toscano ; Robert Crabtree Other Interventions: Discharge Summary Assessment (RN) Last Done: 03/17/19 09:53 DC Date/Time DO NOT enter until pt leaves facility: 03/17/19 10:45
== END 2019-03-17 10:45 | disposition home or self-care (01) | DRG 454 ==
LOC: ASU 05:31 → 3E 10:38